=== PATIENT | female | born 1960 | race Caucasian/White ===

== ENCOUNTER 2019-06-28 20:12 | Inpatient (IN) ==
[2019-06-28] MEDS ORDERED: 0.9 % Sodium Chloride 1,000 ML IVC ONE ×2 (20:40→23:40)
[2019-06-28] MEDS ORDERED: Isovue-370 500 ML BOTTLE IVP ONE ×2 (21:31→21:42)
[2019-06-28 21:32] LABS: INR 1.3; Prothrombin Time 14.7 Seconds (9.4-12.1)
[2019-06-28 21:35] LABS: Activated Partial Thrombo Time 27.3 Seconds (26.0-36.0)
[2019-06-28 21:39] LABS: Acetaminophen < 10 mcg/mL (10-20); Alanine Aminotransferase 8 Units/L (7-52); Albumin 2.7 g/dL (3.5-5.7); Albumin/Globulin Ratio 0.7 (1.1-2.2); Alkaline Phosphatase 98 Units/L (34-104); Aspartate Amino Transferase 9 Units/L (13-39); BUN/Creatinine Ratio 16 (6-26); Bilirubin,Direct 1.1 mg/dL (0.0-0.2); Bilirubin,Total 2.1 mg/dL (0.3-1.0); Blood Urea Nitrogen 17 mg/dL (6-20); Calcium 8.6 mg/dL (8.6-10.3); Carbon Dioxide 21 mEq/L (23-29); Chloride 92 mEq/L (98-107); Globulin 3.9 g/dL (2.4-3.5); Glucose 441 mg/dL (70-105); Osmolality,Calculated 287 (280-300); Potassium 2.6 mEq/L (3.5-5.1); Sodium 128 mEq/L (136-145); Total Protein 6.6 g/dL (6.4-8.9); eGFR For African Americans > 60 (> 60); eGFR For Non-African Americans 52 (> 60)
[2019-06-28 21:40] LABS: Troponin I < 0.03 ng/mL (< 0.04)
[2019-06-28 21:45] LABS: VBG HCO3 22 mEq/L (21-27); VBG PCO2 32 mmHg (41-51); VBG PH 7.45 pH Units (7.32-7.42); VBG PO2 136 mmHg (25-50)
[2019-06-28] MEDS ORDERED: 0.9 % Sodium Chloride 1,000 ML IVC STA (21:48)
[2019-06-28] MEDS ORDERED: Azithromycin 500 MG in D5% in Water 250 ML IVPB STA (21:54)
[2019-06-28] MEDS ORDERED: cefTRIAXone 1,000 MG in Water for inj. (sterile) 10 ML IVP ONE (21:55)
[2019-06-28 22:25] LABS: Hemoglobin 10.9 g/dL (11.5-15.4); Lymphocytes # 0.4 K/mcL (0.6-4.6); Mean Corpuscular HGB Conc 32.1 g/dL (31.6-35.5); Mean Corpuscular Hemoglobin 24.6 pg (28.0-33.3); Mean Corpuscular Volume 76.7 fL (83.0-100.0); Mean Platelet Volume 11.1 fL (9.4-12.4); Platelet Count 155 K/mcL (140-400); Red Blood Count 4.43 M/mcL (3.82-4.97); Red Cell Distribution Width 13.8 % (11.5-14.5); White Blood Count 12.6 K/mcL (4.3-11.1)
[2019-06-28 22:57] LABS: Monocytes # 0.5 K/mcL (0.0-1.3); Neutrophils # 11.7 K/mcL (1.6-8.9); Platelet Estimate Normal (Normal); Toxic Granulation Present (Not Present)
[2019-06-28 23:02] LABS: Bilirubin,Urine Negative (Negative); Blood,Urine Trace (Negative); Clarity,Urine Clear (Clear); Color,Urine Yellow (Yellow); Glucose,Urine (UA) >=1000 mg/dL (Normal); Ketones,Urine 40 mg/dL (Negative); Leukocyte Esterase,Urine Negative (Negative); Nitrite,Urine Negative (Negative); Protein,Urine 100 mg/dL (Neg-Trace); Urobilinogen,Urine Normal (Normal)
[2019-06-28 23:05] LABS: Bacteria,Urine None Seen per hpf (None-Few); Hyaline Casts,Urine None Seen per lpf (None-Few); RBC,Urine 0-3 per hpf (0-3); Squamous Epithelial Cell,Urine Many per lpf (None-Few)
[2019-06-28 23:22] LABS: Yeast,Urine Few per hpf (None Seen)
[2019-06-29] MEDS ORDERED: Ipratropium/Albuterol Neb 3 ML ONE (00:59)
[2019-06-29] MEDS ORDERED: Ipratropium/Albuterol Neb 3 ML IH ONE (00:59)
[2019-06-29] MEDS ORDERED: Furosemide 40 MG/4 ML VIAL IVP ONE ×2 (02:14→08:22)
[2019-06-29 03:16] LABS: Amphetamine Screen,Urine Negative ng/mL (Cutoff=1000); Barbiturate Screen,Urine Negative ng/mL (Cutoff=200); Benzodiazepines Screen,Urine Negative ng/mL (Cutoff=200); Cannabinoid Screen,Urine Negative ng/mL (Cutoff = 50); Cocaine Screen,Urine Negative ng/mL (Cutoff= 300); Opiate Screen,Urine Negative ng/mL (Cutoff=300); Phencyclidine Screen,Urine Negative ng/mL (Cutoff=25)
[2019-06-29 04:35] LABS: Hepatitis C Virus Antibody Reactive (Nonreactive)
[2019-06-29] MEDS ORDERED: *HR* Dextrose 50 % in Water (Syg) 50 ML SYRINGE IVP PRN (04:49)
[2019-06-29] MEDS ORDERED: D5% in Water 1,000 ML IVC PRN (04:49)
[2019-06-29] MEDS ORDERED: Dextrose Gel 15 GM/37.5 ML TUBE PO PRN ×2 (04:49)
[2019-06-29] MEDS ORDERED: Potassium Effervescent 25 MEQ TABLET.EFF PO ONE (04:51)
[2019-06-29] MEDS ORDERED: Azithromycin 500 MG in 0.9 % Sodium Chloride 250 ML IVPB SCH (05:00)
[2019-06-29 05:11] LABS: Basophils # 0.1 K/mcL (0.0-0.2); Basophils % 0.5 %; Hematocrit 32.4 % (35.3-44.9); Hemoglobin 10.6 g/dL (11.5-15.4); Lymphocytes # 0.3 K/mcL (0.6-4.6); Lymphocytes % 2.8 %; Mean Corpuscular HGB Conc 32.7 g/dL (31.6-35.5); Mean Corpuscular Hemoglobin 24.8 pg (28.0-33.3); Mean Corpuscular Volume 75.9 fL (83.0-100.0); Mean Platelet Volume 10.7 fL (9.4-12.4); Monocytes # 0.7 K/mcL (0.0-1.3); Monocytes % 7.2 %; Neutrophils # 8.4 K/mcL (1.6-8.9); Platelet Count 130 K/mcL (140-400); Red Blood Count 4.27 M/mcL (3.82-4.97); Red Cell Distribution Width 13.8 % (11.5-14.5); Segmented Neutrophils % 85.5 %; White Blood Count 9.8 K/mcL (4.3-11.1)
[2019-06-29 05:22] LABS: Hepatitis B Surface Antigen Nonreactive (Nonreactive)
[2019-06-29 05:27] LABS: Platelet Estimate Decreased (Normal); Toxic Granulation Present (Not Present)
[2019-06-29 05:34] LABS: Alanine Aminotransferase 7 Units/L (7-52); Albumin 2.5 g/dL (3.5-5.7); Albumin/Globulin Ratio 0.7 (1.1-2.2); Alkaline Phosphatase 94 Units/L (34-104); Aspartate Amino Transferase 8 Units/L (13-39); BUN/Creatinine Ratio 16 (6-26); Bilirubin,Indirect 0.9 mg/dL (0.0-1.0); Bilirubin,Total 1.7 mg/dL (0.3-1.0); Bilirubin,Total 1.9 mg/dL (0.3-1.0); Blood Urea Nitrogen 15 mg/dL (6-20); Calcium 8.5 mg/dL (8.6-10.3); Carbon Dioxide 22 mEq/L (23-29); Chloride 97 mEq/L (98-107); Globulin 3.4 g/dL (2.4-3.5); Globulin 3.6 g/dL (2.4-3.5); Glucose 356 mg/dL (70-105); Magnesium 1.6 mg/dL (1.6-2.6); Osmolality,Calculated 289 (280-300); Potassium 2.9 mEq/L (3.5-5.1); Sodium 132 mEq/L (136-145); Total Protein 5.9 g/dL (6.4-8.9); Total Protein 6.1 g/dL (6.4-8.9); eGFR For African Americans > 60 (> 60); eGFR For Non-African Americans > 60 (> 60)
[2019-06-29] MEDS: *HR* Heparin 5,000 UNIT/ML VIAL SQ SCH ×3 (05:36→21:10)
[2019-06-29 05:50] LABS: Hepatitis B Core IgM Nonreactive (Nonreactive)
[2019-06-29 05:52] LABS: Hepatitis A Antibody IgM Nonreactive (Nonreactive)
[2019-06-29] MEDS ORDERED: MethylPREDNISolone 40 MG/ML VIAL IVP SCH (06:00)
[2019-06-29] MEDS ORDERED: Potassium Chloride 20 MEQ, Lidocaine 1% 2 ML in 0.9 % Sodium Chloride 250 ML IVPB ONE (06:11)
[2019-06-29] MEDS: Insulin LISPRO 300 UNITS/3 ML VIAL SQ SCH ×9 (06:18→23:07)
[2019-06-29] MEDS: Insulin DETEMIR 100 UNIT/ML X5UNITS SQ SCH ×2 (06:19→20:38)
[2019-06-29] MEDS: Ipratropium/Albuterol Neb 3 ML IH SCH ×4 (06:22→22:33)
[2019-06-29 06:37] LABS: ABG Base Excess 1 mEq/L (-2 to 3); ABG HCO3 26 mEq/L (21-27); ABG Oxygen Saturation 88 % (95-98); ABG PCO2 40 mmHg (35-45); ABG PH 7.42 pH Units (7.32-7.45); ABG PO2 53 mmHg (85-104); ABG TCO2 27 mEq/L (20-26)
[2019-06-29] MEDS: Potassium Chloride 20 MEQ, Lidocaine 1% 2 ML in 0.9 % Sodium Chloride 250 ML IVPB SCH ×2 (08:29→13:36)
[2019-06-29] MEDS ORDERED: Ringers Solution, Lactated 500 ML IVC ONE (10:02)
[2019-06-29 10:22] LABS: VBG HCO3 24 mEq/L (21-27); VBG PCO2 33 mmHg (41-51); VBG PH 7.47 pH Units (7.32-7.42); VBG PO2 234 mmHg (25-50)
[2019-06-29] MEDS: BuPROPion SR (12 HR) 150 MG TABLET PO SCH (11:48)
[2019-06-29] MEDS: Nicotine 21 MG PATCH.TD24 TD SCH (11:57)
[2019-06-29 13:14] LABS: BUN/Creatinine Ratio 15 (6-26); Blood Urea Nitrogen 15 mg/dL (6-20); Calcium 8.7 mg/dL (8.6-10.3); Carbon Dioxide 24 mEq/L (23-29); Chloride 98 mEq/L (98-107); Glucose 329 mg/dL (70-105); Osmolality,Calculated 292 (280-300); Potassium 2.8 mEq/L (3.5-5.1); Sodium 134 mEq/L (136-145); eGFR For African Americans > 60 (> 60); eGFR For Non-African Americans 59 (> 60)
[2019-06-29] MEDS: MethylPREDNISolone 40 MG/ML VIAL IVP SCH (17:47)
[2019-06-29] MEDS ORDERED: Furosemide 40 MG/4 ML VIAL IVP SCH (21:00)
[2019-06-30] MEDS ORDERED: Azithromycin 500 MG in 0.9 % Sodium Chloride 250 ML IVPB SCH
[2019-06-30] MEDS ORDERED: Insulin Human Regular 10 UNIT in 0.9 % Sodium Chloride 10 ML IV ONE ×2 (01:27→03:49)
[2019-06-30] MEDS: Insulin LISPRO 300 UNITS/3 ML VIAL SQ SCH ×8 (01:31→17:24)
[2019-06-30] MEDS: Ipratropium/Albuterol Neb 3 ML IH SCH ×3 (03:50→15:45)
[2019-06-30 05:05] LABS: Basophils % 0.4 %; Hematocrit 31.2 % (35.3-44.9); Hemoglobin 10.2 g/dL (11.5-15.4); Lymphocytes # 0.5 K/mcL (0.6-4.6); Lymphocytes % 7.9 %; Mean Corpuscular HGB Conc 32.7 g/dL (31.6-35.5); Mean Corpuscular Hemoglobin 24.6 pg (28.0-33.3); Mean Corpuscular Volume 75.4 fL (83.0-100.0); Mean Platelet Volume 11.1 fL (9.4-12.4); Monocytes # 0.5 K/mcL (0.0-1.3); Monocytes % 7.2 %; Neutrophils # 5.6 K/mcL (1.6-8.9); Nucleated Red Blood Cells 0.6 /100 WBC (0); Platelet Count 155 K/mcL (140-400); Red Blood Count 4.14 M/mcL (3.82-4.97); Red Cell Distribution Width 13.6 % (11.5-14.5); Segmented Neutrophils % 82.5 %; White Blood Count 6.8 K/mcL (4.3-11.1)
[2019-06-30] MEDS: *HR* Heparin 5,000 UNIT/ML VIAL SQ SCH ×3 (05:13→20:33)
[2019-06-30] MEDS: MethylPREDNISolone 40 MG/ML VIAL IVP SCH ×2 (05:14→17:21)
[2019-06-30 05:18] LABS: BUN/Creatinine Ratio 23 (6-26); Blood Urea Nitrogen 22 mg/dL (6-20); Calcium 8.7 mg/dL (8.6-10.3); Carbon Dioxide 26 mEq/L (23-29); Chloride 101 mEq/L (98-107); Glucose 257 mg/dL (70-105); Magnesium 1.9 mg/dL (1.6-2.6); Osmolality,Calculated 296 (280-300); Potassium 2.6 mEq/L (3.5-5.1); Sodium 137 mEq/L (136-145); eGFR For African Americans > 60 (> 60); eGFR For Non-African Americans 60 (> 60)
[2019-06-30 05:34] LABS: Platelet Estimate Decreased (Normal)
[2019-06-30] MEDS ORDERED: Dextrose Gel 15 GM/37.5 ML TUBE PO PRN ×2 (07:47)
[2019-06-30] MEDS ORDERED: *HR* Dextrose 50 % in Water (Syg) 50 ML SYRINGE IVP PRN (07:47)
[2019-06-30] MEDS ORDERED: D5% in Water 1,000 ML IVC PRN (07:47)
[2019-06-30] MEDS ORDERED: cefTRIAXone 2,000 MG in Water for inj. (sterile) 20 ML IVP SCH (09:00)
[2019-06-30 09:24] LABS: Estimated Average Glucose 243 mg/dl
[2019-06-30] MEDS: Furosemide 40 MG/4 ML VIAL IVP SCH ×2 (09:37→17:21)
[2019-06-30] MEDS: BuPROPion SR (12 HR) 150 MG TABLET PO SCH (09:37)
[2019-06-30] MEDS: Azithromycin 250 MG TABLET PO SCH (09:38)
[2019-06-30] MEDS: cefTRIAXone 2,000 MG in 0.9 % Sodium Chloride Mini Bag 100 ML IVPB SCH (09:39)
[2019-06-30] MEDS: Insulin DETEMIR 100 UNIT/ML X5UNITS SQ SCH (09:40)
[2019-06-30] MEDS: Nicotine 21 MG PATCH.TD24 TD SCH (09:40)
[2019-06-30] MEDS: Budesonide Neb 0.5 MG/2 ML IH SCH ×2 (11:37→21:26)
[2019-06-30] MEDS ORDERED: Levalbuterol Neb 1.25 MG/3 ML ONE (20:38)
[2019-06-30] MEDS ORDERED: Insulin LISPRO 300 UNITS/3 ML VIAL SQ SCH (21:00)
[2019-06-30] MEDS: Levalbuterol Neb 1.25 MG/3 ML IH SCH ×2 (21:26→21:31)
[2019-06-30] MEDS ORDERED: Insulin DETEMIR 100 UNIT/ML X5UNITS SQ ONE (21:49)
[2019-07-01] MEDS ORDERED: Insulin Human Regular 10 UNIT in 0.9 % Sodium Chloride 10 ML IV ONE ×2 (00:10→01:50)
[2019-07-01 04:44] LABS: Basophils # 0.1 K/mcL (0.0-0.2); Basophils % 0.5 %; Hematocrit 32.1 % (35.3-44.9); Hemoglobin 10.4 g/dL (11.5-15.4); Immature Granulocytes % 2.4 % (0-4); Lymphocytes # 0.7 K/mcL (0.6-4.6); Lymphocytes % 7.1 %; Mean Corpuscular HGB Conc 32.4 g/dL (31.6-35.5); Mean Corpuscular Hemoglobin 24.9 pg (28.0-33.3); Mean Platelet Volume 11.2 fL (9.4-12.4); Monocytes # 0.5 K/mcL (0.0-1.3); Monocytes % 4.8 %; Nucleated Red Blood Cells 0.5 /100 WBC (0); Platelet Count 179 K/mcL (140-400); Red Blood Count 4.17 M/mcL (3.82-4.97); Red Cell Distribution Width 14.2 % (11.5-14.5); Segmented Neutrophils % 85.2 %; White Blood Count 9.4 K/mcL (4.3-11.1)
[2019-07-01 05:02] LABS: BUN/Creatinine Ratio 29 (6-26); Blood Urea Nitrogen 30 mg/dL (6-20); Calcium 8.8 mg/dL (8.6-10.3); Carbon Dioxide 26 mEq/L (23-29); Chloride 100 mEq/L (98-107); Glucose 315 mg/dL (70-105); Osmolality,Calculated 300 (280-300); Potassium 3.4 mEq/L (3.5-5.1); Sodium 136 mEq/L (136-145); eGFR For African Americans > 60 (> 60); eGFR For Non-African Americans 56 (> 60)
[2019-07-01] MEDS: *HR* Heparin 5,000 UNIT/ML VIAL SQ SCH ×3 (05:39→21:43)
[2019-07-01] MEDS: MethylPREDNISolone 40 MG/ML VIAL IVP SCH ×2 (05:39→17:01)
[2019-07-01 06:19] LABS: Platelet Estimate Normal (Normal)
[2019-07-01 06:20] LABS: Anisocytosis 1+ (Not Present)
[2019-07-01] MEDS: Insulin LISPRO 300 UNITS/3 ML VIAL SQ SCH ×3 (08:31→17:00)
[2019-07-01] MEDS: BuPROPion SR (12 HR) 150 MG TABLET PO SCH (08:35)
[2019-07-01] MEDS: Furosemide 40 MG/4 ML VIAL IVP SCH ×2 (08:35→17:01)
[2019-07-01] MEDS: Azithromycin 250 MG TABLET PO SCH (08:35)
[2019-07-01] MEDS: Insulin DETEMIR 100 UNIT/ML X5UNITS SQ SCH (08:35)
[2019-07-01] MEDS: Nicotine 21 MG PATCH.TD24 TD SCH (08:35)
[2019-07-01] MEDS: cefTRIAXone 2,000 MG in 0.9 % Sodium Chloride Mini Bag 100 ML IVPB SCH (08:36)
[2019-07-01] MEDS ORDERED: Levalbuterol Neb 1.25 MG/3 ML ONE (09:10)
[2019-07-01] MEDS: Budesonide Neb 0.5 MG/2 ML IH SCH ×2 (09:13→19:49)
[2019-07-01] MEDS: Levalbuterol Neb 1.25 MG/3 ML IH SCH ×4 (12:05→19:49)
[2019-07-01] MEDS: Tenofovir Disoproxil Fumarate 300 MG TABLET PO SCH (14:23)
[2019-07-01] MEDS ORDERED: Insulin DETEMIR 100 UNIT/ML X5UNITS SQ SCH (21:00)
[2019-07-01] MEDS ORDERED: Insulin LISPRO 300 UNITS/3 ML VIAL SQ SCH (23:22)
[2019-07-02] MEDS: Levalbuterol Neb 1.25 MG/3 ML IH SCH ×7 (00:22→23:26)
[2019-07-02] MEDS ORDERED: Insulin Human Regular 10 UNIT in 0.9 % Sodium Chloride 10 ML IV ONE (01:23)
[2019-07-02] MEDS: MethylPREDNISolone 40 MG/ML VIAL IVP SCH ×2 (05:57→17:02)
[2019-07-02] MEDS: *HR* Heparin 5,000 UNIT/ML VIAL SQ SCH ×2 (05:57→14:50)
[2019-07-02 07:01] LABS: Basophils # 0.1 K/mcL (0.0-0.2); Basophils % 0.7 %; Hematocrit 35.1 % (35.3-44.9); Hemoglobin 10.8 g/dL (11.5-15.4); Immature Granulocytes % 3.1 % (0-4); Lymphocytes # 0.7 K/mcL (0.6-4.6); Lymphocytes % 6.7 %; Mean Corpuscular HGB Conc 30.8 g/dL (31.6-35.5); Mean Corpuscular Hemoglobin 24.5 pg (28.0-33.3); Mean Corpuscular Volume 79.6 fL (83.0-100.0); Mean Platelet Volume 10.9 fL (9.4-12.4); Monocytes # 0.5 K/mcL (0.0-1.3); Monocytes % 4.9 %; Neutrophils # 9.1 K/mcL (1.6-8.9); Nucleated Red Blood Cells 0.4 /100 WBC (0); Platelet Count 224 K/mcL (140-400); Red Blood Count 4.41 M/mcL (3.82-4.97); Red Cell Distribution Width 14.6 % (11.5-14.5); Segmented Neutrophils % 84.6 %; White Blood Count 10.7 K/mcL (4.3-11.1)
[2019-07-02 07:21] LABS: BUN/Creatinine Ratio 32 (6-26); Blood Urea Nitrogen 31 mg/dL (6-20); Calcium 8.6 mg/dL (8.6-10.3); Carbon Dioxide 26 mEq/L (23-29); Chloride 100 mEq/L (98-107); Glucose 228 mg/dL (70-105); Magnesium 1.9 mg/dL (1.6-2.6); Osmolality,Calculated 300 (280-300); Potassium 3.8 mEq/L (3.5-5.1); Sodium 138 mEq/L (136-145); eGFR For African Americans > 60 (> 60); eGFR For Non-African Americans 58 (> 60)
[2019-07-02] MEDS ORDERED: Insulin LISPRO 300 UNITS/3 ML VIAL SQ SCH (07:30)
[2019-07-02] MEDS: Budesonide Neb 0.5 MG/2 ML IH SCH ×2 (07:32→19:33)
[2019-07-02 07:49] LABS: Platelet Estimate Normal (Normal); Polychromasia 1+ (Not Present)
[2019-07-02] MEDS: BuPROPion SR (12 HR) 150 MG TABLET PO SCH (09:00)
[2019-07-02] MEDS: cefTRIAXone 2,000 MG in 0.9 % Sodium Chloride Mini Bag 100 ML IVPB SCH (09:01)
[2019-07-02] MEDS: Furosemide 40 MG/4 ML VIAL IVP SCH ×2 (09:01→17:01)
[2019-07-02] MEDS: Azithromycin 250 MG TABLET PO SCH (09:01)
[2019-07-02] MEDS: Nicotine 21 MG PATCH.TD24 TD SCH (09:03)
[2019-07-02] MEDS: Insulin DETEMIR 100 UNIT/ML X5UNITS SQ SCH (09:03)
[2019-07-02] MEDS: Insulin LISPRO 300 UNITS/3 ML VIAL SQ SCH ×3 (09:17→17:02)
[2019-07-02] MEDS: Tenofovir Disoproxil Fumarate 300 MG TABLET PO SCH (10:42)
[2019-07-02] MEDS ORDERED: Dextrose Gel 15 GM/37.5 ML TUBE PO PRN ×2 (17:03)
[2019-07-02] MEDS ORDERED: D5% in Water 1,000 ML IVC PRN (17:03)
[2019-07-02] MEDS ORDERED: *HR* Dextrose 50 % in Water (Syg) 50 ML SYRINGE IVP PRN (17:03)
[2019-07-03] MEDS: Insulin DETEMIR 100 UNIT/ML X5UNITS SQ SCH ×3 (00:27→22:28)
[2019-07-03] MEDS: Insulin LISPRO 300 UNITS/3 ML VIAL SQ SCH ×8 (00:27→22:09)
[2019-07-03] MEDS: *HR* Heparin 5,000 UNIT/ML VIAL SQ SCH ×4 (00:27→22:10)
[2019-07-03] MEDS: Levalbuterol Neb 1.25 MG/3 ML IH SCH ×6 (03:32→23:23)
[2019-07-03] MEDS: MethylPREDNISolone 40 MG/ML VIAL IVP SCH ×2 (05:26→17:05)
[2019-07-03] MEDS: Budesonide Neb 0.5 MG/2 ML IH SCH ×2 (07:39→19:49)
[2019-07-03] MEDS: Nicotine 21 MG PATCH.TD24 TD SCH (08:54)
[2019-07-03] MEDS: Furosemide 40 MG/4 ML VIAL IVP SCH ×2 (08:54→17:05)
[2019-07-03] MEDS: cefTRIAXone 2,000 MG in 0.9 % Sodium Chloride Mini Bag 100 ML IVPB SCH (08:54)
[2019-07-03] MEDS: Azithromycin 250 MG TABLET PO SCH (08:55)
[2019-07-03] MEDS: BuPROPion SR (12 HR) 150 MG TABLET PO SCH (08:55)
[2019-07-03 09:46] LABS: Hematocrit 33.3 % (35.3-44.9); Hemoglobin 10.6 g/dL (11.5-15.4); Mean Corpuscular HGB Conc 31.8 g/dL (31.6-35.5); Mean Corpuscular Hemoglobin 24.4 pg (28.0-33.3); Mean Corpuscular Volume 76.6 fL (83.0-100.0); Mean Platelet Volume 10.9 fL (9.4-12.4); Nucleated Red Blood Cells 0.3 /100 WBC (0); Platelet Count 233 K/mcL (140-400); Red Blood Count 4.35 M/mcL (3.82-4.97); Red Cell Distribution Width 14.6 % (11.5-14.5); White Blood Count 11.2 K/mcL (4.3-11.1)
[2019-07-03 10:05] LABS: BUN/Creatinine Ratio 31 (6-26); Blood Urea Nitrogen 30 mg/dL (6-20); Calcium 7.9 mg/dL (8.6-10.3); Carbon Dioxide 31 mEq/L (23-29); Chloride 99 mEq/L (98-107); Glucose 276 mg/dL (70-105); Magnesium 1.8 mg/dL (1.6-2.6); Osmolality,Calculated 296 (280-300); Potassium 4.4 mEq/L (3.5-5.1); Sodium 135 mEq/L (136-145); eGFR For African Americans > 60 (> 60); eGFR For Non-African Americans 58 (> 60)
[2019-07-03 10:18] LABS: Lymphocytes # 0.9 K/mcL (0.6-4.6); Monocytes # 0.2 K/mcL (0.0-1.3); Neutrophils # 10.1 K/mcL (1.6-8.9); Platelet Estimate Normal (Normal)
[2019-07-03] MEDS: Tenofovir Disoproxil Fumarate 300 MG TABLET PO SCH (11:07)
[2019-07-03] MEDS ORDERED: Acetaminophen 325 MG TABLET PO ONE (21:56)
[2019-07-04] MEDS: Levalbuterol Neb 1.25 MG/3 ML IH SCH ×6 (03:41→23:29)
[2019-07-04] MEDS: *HR* Heparin 5,000 UNIT/ML VIAL SQ SCH ×3 (05:25→22:43)
[2019-07-04] MEDS: MethylPREDNISolone 40 MG/ML VIAL IVP SCH (05:26)
[2019-07-04 06:05] LABS: Basophils % 0.4 %; Eosinophils % 0.1 %; Hematocrit 32.5 % (35.3-44.9); Hemoglobin 9.7 g/dL (11.5-15.4); Immature Granulocytes % 3.3 % (0-4); Lymphocytes # 1.1 K/mcL (0.6-4.6); Lymphocytes % 10.5 %; Mean Corpuscular HGB Conc 29.8 g/dL (31.6-35.5); Mean Corpuscular Hemoglobin 24.5 pg (28.0-33.3); Mean Corpuscular Volume 82.1 fL (83.0-100.0); Mean Platelet Volume 11.1 fL (9.4-12.4); Monocytes # 0.4 K/mcL (0.0-1.3); Monocytes % 3.8 %; Neutrophils # 8.5 K/mcL (1.6-8.9); Nucleated Red Blood Cells 0.2 /100 WBC (0); Platelet Count 217 K/mcL (140-400); Red Blood Count 3.96 M/mcL (3.82-4.97); Segmented Neutrophils % 81.9 %; White Blood Count 10.4 K/mcL (4.3-11.1)
[2019-07-04 06:26] LABS: BUN/Creatinine Ratio 33 (6-26); Blood Urea Nitrogen 34 mg/dL (6-20); Calcium 8.3 mg/dL (8.6-10.3); Carbon Dioxide 29 mEq/L (23-29); Chloride 99 mEq/L (98-107); Glucose 202 mg/dL (70-105); Osmolality,Calculated 295 (280-300); Potassium 4.7 mEq/L (3.5-5.1); Sodium 136 mEq/L (136-145); eGFR For African Americans > 60 (> 60); eGFR For Non-African Americans 55 (> 60)
[2019-07-04] MEDS: Budesonide Neb 0.5 MG/2 ML IH SCH ×2 (07:22→20:21)
[2019-07-04] MEDS: Insulin DETEMIR 100 UNIT/ML X5UNITS SQ SCH ×2 (08:35→22:43)
[2019-07-04] MEDS: Nicotine 21 MG PATCH.TD24 TD SCH (08:36)
[2019-07-04] MEDS: BuPROPion SR (12 HR) 150 MG TABLET PO SCH (08:36)
[2019-07-04] MEDS: Furosemide 40 MG/4 ML VIAL IVP SCH (08:36)
[2019-07-04] MEDS: cefTRIAXone 2,000 MG in 0.9 % Sodium Chloride Mini Bag 100 ML IVPB SCH (08:36)
[2019-07-04] MEDS: Insulin LISPRO 300 UNITS/3 ML VIAL SQ SCH ×7 (08:38→22:44)
[2019-07-04] MEDS: Tenofovir Disoproxil Fumarate 300 MG TABLET PO SCH (09:50)
[2019-07-04] MEDS: predniSONE 20 MG TABLET PO SCH (16:02)
[2019-07-05] MEDS: Levalbuterol Neb 1.25 MG/3 ML IH SCH ×6 (04:08→23:46)
[2019-07-05 06:08] LABS: Basophils % 0.3 %; Hematocrit 31.4 % (35.3-44.9); Hemoglobin 9.4 g/dL (11.5-15.4); Immature Granulocytes % 3.3 % (0-4); Lymphocytes # 0.7 K/mcL (0.6-4.6); Lymphocytes % 9.3 %; Mean Corpuscular HGB Conc 29.9 g/dL (31.6-35.5); Mean Corpuscular Hemoglobin 24.6 pg (28.0-33.3); Mean Corpuscular Volume 82.2 fL (83.0-100.0); Mean Platelet Volume 10.8 fL (9.4-12.4); Monocytes # 0.3 K/mcL (0.0-1.3); Monocytes % 4.3 %; Platelet Count 207 K/mcL (140-400); Red Blood Count 3.82 M/mcL (3.82-4.97); Red Cell Distribution Width 15.7 % (11.5-14.5); Segmented Neutrophils % 82.8 %; White Blood Count 7.2 K/mcL (4.3-11.1)
[2019-07-05 06:21] LABS: BUN/Creatinine Ratio 31 (6-26); Blood Urea Nitrogen 30 mg/dL (6-20); Calcium 8.2 mg/dL (8.6-10.3); Carbon Dioxide 26 mEq/L (23-29); Chloride 99 mEq/L (98-107); Glucose 335 mg/dL (70-105); Osmolality,Calculated 297 (280-300); Potassium 5.2 mEq/L (3.5-5.1); Sodium 134 mEq/L (136-145); eGFR For African Americans > 60 (> 60); eGFR For Non-African Americans 58 (> 60)
[2019-07-05] MEDS: *HR* Heparin 5,000 UNIT/ML VIAL SQ SCH ×3 (06:23→22:12)
[2019-07-05] MEDS: Budesonide Neb 0.5 MG/2 ML IH SCH ×2 (07:48→19:53)
[2019-07-05] MEDS: predniSONE 20 MG TABLET PO SCH (09:52)
[2019-07-05] MEDS: BuPROPion SR (12 HR) 150 MG TABLET PO SCH (09:52)
[2019-07-05] MEDS: Insulin LISPRO 300 UNITS/3 ML VIAL SQ SCH ×7 (09:52→22:12)
[2019-07-05] MEDS: Nicotine 21 MG PATCH.TD24 TD SCH (09:55)
[2019-07-05] MEDS: cefTRIAXone 2,000 MG in 0.9 % Sodium Chloride Mini Bag 100 ML IVPB SCH (09:55)
[2019-07-05] MEDS: Insulin DETEMIR 100 UNIT/ML X5UNITS SQ SCH ×2 (10:00→22:12)
[2019-07-05] MEDS: Tenofovir Disoproxil Fumarate 300 MG TABLET PO SCH (10:41)
[2019-07-05 15:09] LABS: BUN/Creatinine Ratio 27 (6-26); Blood Urea Nitrogen 27 mg/dL (6-20); Calcium 8.7 mg/dL (8.6-10.3); Carbon Dioxide 27 mEq/L (23-29); Chloride 101 mEq/L (98-107); Glucose 205 mg/dL (70-105); Osmolality,Calculated 293 (280-300); Sodium 136 mEq/L (136-145); eGFR For African Americans > 60 (> 60); eGFR For Non-African Americans 57 (> 60)
[2019-07-06] MEDS: Levalbuterol Neb 1.25 MG/3 ML IH SCH ×4 (03:45→15:24)
[2019-07-06] MEDS: *HR* Heparin 5,000 UNIT/ML VIAL SQ SCH ×2 (05:28→16:29)
[2019-07-06 06:33] LABS: Basophils % 0.3 %; Eosinophils # 0.1 K/mcL (0.0-0.6); Eosinophils % 0.8 %; Hematocrit 31.9 % (35.3-44.9); Hemoglobin 9.9 g/dL (11.5-15.4); Immature Granulocytes % 3.2 % (0-4); Lymphocytes # 1.3 K/mcL (0.6-4.6); Lymphocytes % 14.8 %; Mean Corpuscular Hemoglobin 24.4 pg (28.0-33.3); Mean Corpuscular Volume 78.8 fL (83.0-100.0); Mean Platelet Volume 10.1 fL (9.4-12.4); Monocytes # 0.4 K/mcL (0.0-1.3); Monocytes % 4.6 %; Neutrophils # 6.8 K/mcL (1.6-8.9); Platelet Count 223 K/mcL (140-400); Red Blood Count 4.05 M/mcL (3.82-4.97); Red Cell Distribution Width 15.8 % (11.5-14.5); Segmented Neutrophils % 76.3 %
[2019-07-06 06:48] VITALS: BP 141/69
[2019-07-06 06:59] LABS: BUN/Creatinine Ratio 25 (6-26); Blood Urea Nitrogen 24 mg/dL (6-20); Calcium 8.3 mg/dL (8.6-10.3); Carbon Dioxide 25 mEq/L (23-29); Chloride 103 mEq/L (98-107); Glucose 101 mg/dL (70-105); Magnesium 1.9 mg/dL (1.6-2.6); Osmolality,Calculated 286 (280-300); Potassium 4.5 mEq/L (3.5-5.1); Sodium 136 mEq/L (136-145); eGFR For African Americans > 60 (> 60); eGFR For Non-African Americans 59 (> 60)
[2019-07-06] MEDS: Budesonide Neb 0.5 MG/2 ML IH SCH (07:30)
[2019-07-06] MEDS: predniSONE 20 MG TABLET PO SCH (10:18)
[2019-07-06] MEDS: BuPROPion SR (12 HR) 150 MG TABLET PO SCH (10:18)
[2019-07-06] MEDS: Tenofovir Disoproxil Fumarate 300 MG TABLET PO SCH (10:18)
[2019-07-06] MEDS: Insulin LISPRO 300 UNITS/3 ML VIAL SQ SCH ×6 (10:18→16:29)
[2019-07-06] MEDS: cefTRIAXone 2,000 MG in 0.9 % Sodium Chloride Mini Bag 100 ML IVPB SCH (10:19)
[2019-07-06] MEDS: Nicotine 21 MG PATCH.TD24 TD SCH (10:19)
[2019-07-06] MEDS: Insulin DETEMIR 100 UNIT/ML X5UNITS SQ SCH (10:19)
== END 2019-07-06 17:19 | disposition home or self-care (01) | DRG 720 ==
LOC: EMEROOARM 20:12 → CDU 20:12 → SUATTDRO 06-29 06:16 → 2ANU 06-29 14:01
PROVIDERS: ADMIT Internal Medicine; ATTEND Internal Medicine

== ENCOUNTER 2021-03-06 21:26 | Observation (INO) ==
[2021-03-07 00:53] LABS: Basophils # 0.1 K/mcL (0.0-0.2); Basophils % 0.5 %; Eosinophils # 0.2 K/mcL (0.0-0.6); Eosinophils % 2.5 %; Hematocrit 46.3 % (35.3-44.9); Hemoglobin 13.9 g/dL (11.5-15.4); Immature Granulocytes % 0.3 % (0-4); Lymphocytes # 1.5 K/mcL (0.6-4.6); Lymphocytes % 15.5 %; Mean Corpuscular Hemoglobin 23.2 pg (28.0-33.3); Mean Corpuscular Volume 77.3 fL (83.0-100.0); Mean Platelet Volume 10.1 fL (9.4-12.4); Monocytes # 0.7 K/mcL (0.0-1.3); Monocytes % 7.1 %; Platelet Count 239 K/mcL (140-400); Red Blood Count 5.99 M/mcL (3.82-4.97); Red Cell Distribution Width 14.4 % (11.5-14.5); Segmented Neutrophils % 74.1 %; White Blood Count 9.5 K/mcL (4.3-11.1)
[2021-03-07 01:13] LABS: BUN/Creatinine Ratio 8 (6-26); Blood Urea Nitrogen 9 mg/dL (8-23); Calcium 9.3 mg/dL (8.6-10.3); Carbon Dioxide 32 mEq/L (23-29); Chloride 94 mEq/L (98-107); Glucose 137 mg/dL (70-105); Osmolality,Calculated 281 (280-300); Potassium 3.3 mEq/L (3.5-5.1); Sodium 135 mEq/L (136-145); eGFR For African Americans > 60 (> 60); eGFR For Non-African Americans 51 (> 60)
[2021-03-07 01:14] LABS: Troponin I < 0.03 ng/mL (< 0.04)
[2021-03-07] MEDS ORDERED: cefTRIAXone 1,000 MG in 0.9 % Sodium Chloride Mini Bag 100 ML IVPB ONE (02:13)
[2021-03-07] MEDS ORDERED: Azithromycin 500 MG in 0.9 % Sodium Chloride 250 ML IVPB ONE (02:13)
[2021-03-07] MEDS ORDERED: methylPREDNISolone 125 MG/2 ML VIAL IM ONE (02:15)
[2021-03-07] MEDS ORDERED: methylPREDNISolone 125 MG/2 ML VIAL IVP ONE (02:45)
[2021-03-07 04:12] LABS: Adenovirus Not Detected (Not Detect)
[2021-03-07 04:13] LABS: Bordetella Pertussis Not Detected (Not Detect); Chlamydophila pneumoniae Not Detected (Not Detect); Coronavirus 229E Not Detected (Not Detect); Coronavirus HKU1 Not Detected (Not Detect); Coronavirus NL63 Not Detected (Not Detect); Coronavirus OC43 Not Detected (Not Detect); Human Metapneumovirus Not Detected (Not Detect); Human Rhinovirus/Enterovirus DETECTED (Not Detect); Influenza A Subtype 2009 H1 Not Detected (Not Detect); Influenza B Not Detected (Not Detect); Mycoplasma pneumoniae Not Detected (Not Detect); Parainfluenza Virus 1 Not Detected (Not Detect); Parainfluenza Virus 2 Not Detected (Not Detect); Parainfluenza Virus 3 Not Detected (Not Detect); Parainfluenza Virus 4 Not Detected (Not Detect); Respiratory Syncytial Virus Not Detected (Not Detect); SARS-CoV-2 Not Detected (Not Detect)
[2021-03-07] MEDS ORDERED: Ipratropium/Albuterol Neb 3 ML IH ONE (04:37)
[2021-03-07 04:40] LABS: VBG HCO3 34 mEq/L (21-27); VBG PCO2 70 mmHg (41-51); VBG PO2 101 mmHg (25-50)
[2021-03-07] MEDS ORDERED: Naloxone 0.4 MG/ML INJ IVP PRN (05:25)
[2021-03-07] MEDS ORDERED: Ondansetron ODT 4 MG TAB.RAPDIS SL PRN (05:25)
[2021-03-07] MEDS ORDERED: D5% in Water 1,000 ML IVC PRN (05:26)
[2021-03-07] MEDS ORDERED: Dextrose Gel 15 GM/37.5 ML TUBE PO PRN ×2 (05:26)
[2021-03-07] MEDS ORDERED: *HR* Dextrose 50 % in Water (Vial) 50 ML VIAL IVP PRN (05:26)
[2021-03-07] MEDS ORDERED: Ipratropium/Albuterol Neb 3 ML IH PRN (05:26)
[2021-03-07 06:50] LABS: Bilirubin,Urine Negative (Negative); Blood,Urine Negative (Negative); Clarity,Urine Clear (Clear); Color,Urine Light-Yellow (Yellow); Glucose,Urine (UA) >=1000 mg/dL (Normal); Ketones,Urine Negative (Negative); Leukocyte Esterase,Urine Negative (Negative); Nitrite,Urine Negative (Negative); PH,Urine 5.5 pH Units (5.0-8.0); Protein,Urine Negative (Neg-Trace); RBC,Urine 0-3 per hpf (0-3); Specific Gravity,Urine 1.013 (1.010-1.025); Squamous Epithelial Cell,Urine Few per hpf (None-Few); Urobilinogen,Urine Normal (Normal); WBC,Urine 0-3 per hpf (0-3)
[2021-03-07] MEDS: Insulin LISPRO 300 UNITS/3 ML VIAL SUBQ SCH ×3 (10:08→17:20)
[2021-03-07] MEDS: *HR* Heparin 5,000 UNIT/ML VIAL SQ SCH ×2 (10:12→17:23)
[2021-03-07] MEDS: predniSONE 20 MG TABLET PO SCH (10:12)
[2021-03-07] MEDS: Ipratropium/Albuterol Neb 3 ML IH SCH ×5 (10:21→23:28)
[2021-03-07] MEDS ORDERED: Insulin LISPRO 300 UNITS/3 ML VIAL SUBQ SCH (21:00)
[2021-03-08] MEDS: Ipratropium/Albuterol Neb 3 ML IH SCH ×2 (03:46→07:30)
[2021-03-08] MEDS: *HR* Heparin 5,000 UNIT/ML VIAL SQ SCH (06:36)
[2021-03-08] MEDS: predniSONE 20 MG TABLET PO SCH (08:56)
[2021-03-08] MEDS: Insulin LISPRO 300 UNITS/3 ML VIAL SUBQ SCH (08:57)
[2021-03-08 10:39] VITALS: BP 111/56; PULSE 77; TEMP 98.1; O2SAT 90
[2021-03-08] MEDS ORDERED: cefTRIAXone 1,000 MG in Water for inj. (sterile) 10 ML IVP SCH (18:00)
[2021-03-11 08:50] LABS: Acinetobacter baumannii by PCR Not Detected (Not Detect); Candida albicans by PCR Not Detected (Not Detect); Candida glabrata by PCR Not Detected (Not Detect); Candida krusei by PCR Not Detected (Not Detect); Candida parapsilosis by PCR Not Detected (Not Detect); Candida tropicalis by PCR Not Detected (Not Detect); Enterobacter cloacae Cmplx PCR Not Detected (Not Detect); Enterobacteriaceae by PCR Not Detected (Not Detect); Enterococcus by PCR Not Detected (Not Detect); Escherichia coli by PCR Not Detected (Not Detect); Klebsiella oxytoca by PCR Not Detected (Not Detect); Klebsiella pneumoniae by PCR Not Detected (Not Detect); Proteus by PCR Not Detected (Not Detect); Pseudomonas aeruginosa by PCR Not Detected (Not Detect); Serratia marcescens by PCR Not Detected (Not Detect); Staphylococcus aureus by PCR Not Detected (Not Detect); Staphylococcus by PCR DETECTED (Not Detect); Streptococcus agalactiae(B)PCR Not Detected (Not Detect); Streptococcus by PCR Not Detected (Not Detect); Streptococcus pneumoniae PCR Not Detected (Not Detect); Streptococcus pyogenes (A) PCR Not Detected (Not Detect); mecA Methicillin-Resist Gene DETECTED (Not Detect)
== END 2021-03-08 12:36 | disposition home or self-care (01) ==
LOC: EMEROOARM 21:26 → CDU 21:26 → SUATTDRO 03-07 06:56 → CDU 03-07 08:48
PROVIDERS: ADMIT Student in an Organized Health Care Education/Training Program; ATTEND Student in an Organized Health Care Education/Training Program